=== PATIENT | male | born 1995 | race American Indian/Alaskan Native ===

== ENCOUNTER 2021-09-27 22:20 | Emergency (ER) | payer SELFPAY ==
[2021-09-27] MEDS ORDERED: LORazepam 2 MG/ML SDV IVPUSH ONE (22:42)
[2021-09-27] MEDS ORDERED: Ketorolac 30 MG/ML SDV IVPUSH ONE (22:42)
[2021-09-27] MEDS ORDERED: Thiamine 200 MG/2 ML MDV IVPUSH ONE (22:42)
[2021-09-27] MEDS ORDERED: Sodium Chloride 0.9% 1,000 ML IV ONE ×2 (22:42→22:43)
[2021-09-27] MEDS ORDERED: Sodium Chloride 0.9% 2.5 ML Syringe FLUSH PRN (22:43)
[2021-09-27] MEDS ORDERED: Ondansetron 4 MG/2 ML SDV IVPUSH ONE (22:43)
[2021-09-27] MEDS ORDERED: Sodium Chloride 0.9% 10 ML Syringe FLUSH PRN (22:43)
[2021-09-27 23:12] LABS: ACETAMINOPHEN <2.0 ug/mL; BLOOD UREA NITROGEN,BUN 12 mg/dL (7.0-18.0); CARBON DIOXIDE,CO2 18.5 mmol/L (21.0-32.0); CHLORIDE,CL 98 mmol/L (98-107); GLUCOSE RANDOM 131 mg/dL (74-106); LIPASE 251 U/L (73-393); POTASSIUM,K 3.3 mmol/L (3.5-5.1); SODIUM,NA 134 mmol/L (136-148)
[2021-09-27 23:15] LABS: ESTIMATED GFR > 60.0 ml/min
[2021-09-28] MEDS ORDERED: LORazepam 2 MG/ML SDV IVPUSH ONE (00:21)
== END 2021-09-28 01:07 | disposition home or self-care (01) ==
LOC: MW.ED 22:20
DX: F10.239 Alcohol dependence with withdrawal, unspecified (principal); Z20.822 Contact with and (suspected) exposure to COVID-19
CPT/HCPCS: 36415; 80053; 80143; 80179; 80307; 83690; 83735; 84443; 85025; 87635; 93005; 96361; 96374; 96375; 96376; 99285; J1885; J2060; J2405; J3411; J3490; J7030; 93010; 99284; U0002